=== PATIENT | female | born 1990 | race Caucasian/White ===

== ENCOUNTER 2017-04-08 22:18 | Emergency (ER) | payer SELFPAY ==
[2017-04-09] MEDS ORDERED: LIDOCAINE 5% (700 MG) TRANSDERMAL ADH..PATCH TP ONE (01:58)
[2017-04-09] MEDS ORDERED: KETOROLAC TROMETHAMINE 60 MG/2 ML SDV IM ONE (01:58)
[2017-04-09] MEDS ORDERED: CYCLOBENZAPRINE HCL 10 MG TABLET PO ONE (02:05)
[2017-04-09] MEDS ORDERED: MORPHINE SULFATE IR 15 MG TABLET PO ONE (02:05)
--- NOTE | 2017-04-09 02:16 | ER Document Report ---
ED General - General Chief Complaint: Hip Pain Stated Complaint: HIP AND BACK PAIN Time Seen by Provider: 04/09/17 01:16 Notes: Patient is a 26-year-old female who presents with complaints of 5 days of left buttock and hamstring pain. Does describe it as severe, constant, aching pain that is worsened by movement. She has been trying naproxen with minimal improvement of the symptoms. Was seen at a different emergency department on 2 separate occasions and states that this has not improved her symptoms. Denies any acute injury to the area. States overall her pain is improved over the last 5 days. She denies any weakness, numbness, fever, rash to the area. No history of similar symptoms in the past. TRAVEL OUTSIDE OF THE [place] IN LAST 30 DAYS: No Past Medical History - General Information source: Patient - Social History Smoking Status: Current Every Day Smoker Frequency of alcohol use: None Drug Abuse: None Lives with: Spouse/Significant other Family History: Reviewed & Not Pertinent Patient has suicidal ideation: No Patient has homicidal ideation: No Renal/ Medical History: Denies: Hx Peritoneal Dialysis Review of Systems - Review of Systems Notes: Constitutional: Negative for fever. HENT: Negative for sore throat. Eyes: Negative for visual changes. Cardiovascular: Negative for chest pain. Respiratory: Negative for shortness of breath. Gastrointestinal: Negative for abdominal pain, vomiting or diarrhea. Genitourinary: Negative for dysuria. Musculoskeletal: N positive for left buttock and hamstring pain Skin: Negative for rash. Neurological: Negative for headaches, weakness or numbness. 10 point ROS negative except as marked above and in HPI. Physical Exam - Vital signs Vitals: Temp Pulse BP Pulse Ox 98.5 F 97 115/73 97 04/08/17 23:05 04/08/17 23:05 04/08/17 23:05 04/08/17 23:05 Interpretation: Normal Notes: PHYSICAL EXAMINATION: GENERAL: Well-appearing, well-nourished and in no acute distress. HEAD: Atraumatic, normocephalic. EYES: Pupils equal round and reactive to light, extraocular movements intact, sclera anicteric, conjunctiva are normal. ENT: nares patent, oropharynx clear without exudates. Moist mucous membranes. NECK: Normal range of motion, supple without lymphadenopathy LUNGS: Breath sounds clear to auscultation bilaterally and equal. No wheezes rales or rhonchi. HEART: Regular rate and rhythm without murmurs ABDOMEN: Soft, nontender, normoactive bowel sounds. No guarding, no rebound. No masses appreciated. EXTREMITIES: Pain on direct palpation of the left gluteal muscle as well as the left hamstring muscles. She has no pain with axial loading or internal or external rotation of the hip. No pain to the popliteal fossa. There is no edema in either extremity. She has no midline back pain, step-offs or deformities. NEUROLOGICAL: No focal neurological deficits. Moves all extremities spontaneously and on command. PSYCH: Normal mood, normal affect. SKIN: Warm, Dry, normal turgor, no rashes or lesions noted. Course - Re-evaluation Re-evalutation: 04/09/17 02:12 Patient presents with pain to her left buttock, quadriceps and hamstring very reproducible on exam. She has no pain with axial loading or internal/external rotation of the hip. She has already had x-rays of the hip at another facility that were reportedly normal and has declined repeating these films. She has acute palpation tenderness to the buttock and hamstrings in particular but has no pain to the popliteal fossa or calf. She also has pain with movement of these areas. This is all consistent with likely musculoskeletal irritation. I have informed the patient that should her pain not improve, she should consider getting an ultrasound of the extremity to evaluate for DVT but I have an overall extremely low clinical suspicion for this diagnosis at this time as she has no edema whatsoever to the area, no risk factors for this diagnosis, well score is 0 for DVT. Will treat symptomatically at this time and recommend close outpatient follow-up. At this time will discharge with return precautions and follow-up recommendations. Verbal discharge instructions given a the bedside and opportunity for questions given. Medication warnings reviewed. Patient is in agreement with this plan and has verbalized understanding of return precautions and the need for primary care follow-up in the next 24-72 hours. - Vital Signs Vital signs: Temp Pulse Resp BP Pulse Ox 98.9 F 88 18 108/63 99 04/09/17 02:37 04/09/17 02:37 04/09/17 02:37 04/09/17 02:37 04/09/17 02:37 Discharge - Discharge Clinical Impression: Left buttock pain, Left leg pain Condition: Good Disposition: HOME, SELF-CARE Additional Instructions: You likely have a muscle/ligamentous strain. For your pain: Take ibuprofen 600 mg and acetaminophen 1000 mg every 6 hours together as needed for pain. If this does not control your pain you may take 15 mg of oral morphine every 4 hours as needed. Please be very careful about using the oral morphine and only use this for severe pain. You can also use Flexeril at night for muscle relaxation. Be sure to apply heat to the area as often as possible. Please follow-up with your primary care physician if you do not have improving your symptoms in the next 1-2 weeks. Please return immediately if you develop weakness, numbness, spreading redness from the area, or any other symptoms that are concerning to you. Prescriptions: Cyclobenzaprine HCl [Flexeril 10 mg Tablet] 10 mg PO QHS PRN #15 tab PRN Reason: Morphine Sulfate [Morphine Ir 15 mg Tablet] 15 mg PO Q4HP PRN #6 tablet PRN Reason:
[2017-04-09 02:42] VITALS: BP 108/63
== END 2017-04-09 02:42 | disposition home or self-care (01) ==
LOC: ER 22:18
DX: M25.552 Pain in left hip (principal); M79.1 Myalgia; F17.200 Nicotine dependence, unspecified, uncomplicated
CPT/HCPCS: 99283; 96372; J1885